=== PATIENT | male | born 1990 | race Caucasian/White ===

== ENCOUNTER 2017-02-01 17:28 | Emergency (ER) | payer SELFPAY | END 2017-02-01 18:50 | disposition home or self-care (01) | PROVIDERS: Emergency Provider Emergency Medicine; Visit Provider Emergency Medicine | DX: J11.1 Influenza due to unidentified influenza virus with other respiratory manifestations (principal) | CPT/HCPCS: 87275; 87276; 99282 ==

== ENCOUNTER 2017-03-03 16:27 | Emergency (ER) | payer BC, SELFPAY ==
[2017-03-03 18:31] VITALS: BP 142/90; PULSE 72; RESP 18; TEMP 37.1; O2SAT 100; BMI 25.4
--- NOTE | 2017-03-03 18:40 | PC.NURSE ---
Discussed symptoms with patient. Reporting the worst headache of her life. Hx of migraines but never like this . Reports a stabbing pain left side of head worsening over the last 5 days. never had a migraine this long and doesn't think they have ever effected her vision like this one. Discussed possible differentials and [facility] guidelines. Pt agreeable to transfer to ER for further evaluation. Report called to Jennifer. Rm 4 available. Pt asissted to ER by Heydi [facility] tech.
--- NOTE | 2017-03-03 19:19 | HMH.EDUTC ---
[facility] Disposition Clinical Impression: Right shoulder pain Qualifiers: Chronicity: acute Qualified Code(s): M25.511 - Pain in right shoulder Disposition: Home, Self-Care Condition on Discharge: Good Instructions: DI for Shoulder Pain Additional Instructions: After one month of symptoms, you need to follow up. Since you don't have a primary care, i will refer you to ortho. No steroid injection due to traumatic injury. Could make symptoms worse. Call ortho tomorrow for follow up appointment Referrals: Tone Church MD [Staff Physician] - (Call tomorrow. Report injury one month ago with persistant pain w/ ROM and weakness. Request appt for evaluation.) Time of Disposition: 20:14 Medical Decision Making Vital Signs: 03/03/17 18:31 Temperature 98.8 F Temperature Source Temporal Artery Scan Pulse Rate [Brachial] 72 Respiratory Rate 18 Blood Pressure [Right Arm] 142/90 Blood Pressure Mean [Right Arm] 107 Blood Pressure Source [Right Arm] Automatic Cuff Blood Pressure Position [Right Arm] Sitting 02 Sat by Pulse Oximetry 100 Oxygen Delivery Method Room Air - Physician Consults Physician Consulted: Dr. Francis, ER Reason -: Pt condition Comment/Response: Discussed HPI and exam. Refuses to do cortisone injection when trauma involved due to risk of worsening symptoms. No further evaluation recommended. Needs to follow up with ortho. Discussed with patient. Agreeable. - Calvin Inquiry Pt receiving controlled substance: No [facility] HPI - General Stated complaint: r shoulder pain Time Seen by Provider: 03/03/17 19:20 Mode of Arrival: Ambulatory Source of Information: Patient Limitations: No Limitations Description of Symptoms (Recalled from Triage Doc. by RN): HURT RT SHOULDER 1 MONTH AGO ARM WRESTLING HEENT Symptoms (Recalled from RN notes): No Resp Symptoms (Recalled from RN notes): No Skin Symptoms (Recalled from RN notes): No MS Symptoms (Recalled from RN notes): No Functional Status (Recalled from RN notes): NA - History of Present Illness Provider Complaint: c/o right shoulder pain x 1 month since arm wrestling a really big guero . Immediate severe pain and the next morning, unable to move shoulder at all. Improved throughout the first week but once month later, continued pain w/ limited ROM and weakness. No N/T. Here today wanting to get a steroid injection in shoulder and work excuse. no improvement with tylenol and motrin any longer. Hasn't taken or tried anything in weeks. No follow up since pain started. Doesn't have a PCP. Doesn't want a referral. really just want the injection because it has helped with other pains in the past. I know it is not my bone. I don't want xrays. this is deeper. Like ligament or tendon or something. - Related Data Home Medications Medication Instructions Recorded Confirmed No Known Home Medications [No 03/03/17 03/03/17 Known Home Medications] Allergies Allergy/AdvReac Type Severity Reaction Status Date / Time Penicillins Allergy Hives Verified 03/03/17 18:35 - Worker's Comp Is this a Worker's Comp case?: No [facility] History I have reviewed the patient's past medical history: Yes (denies PMHx) Other Surgeries: Yes: Other (left shoulder and left elbow) - *Social History Smoking Status: Current every day smoker Tobacco Type: cigarettes Alcohol Intake: current Alcohol Intake Frequency:: a few times a week - Psychiatric History Expresses thoughts of harming self/others: None Suicide Plan Description: No Plan ROS Obtained: Yes Systems reviewed as appropriate & no additional complaints - Cardiovascular Cardiovascular: Denies chest pain - Respiratory Respiratory: No dyspnea - Gastrointestinal Gastrointestingal: Denies: nausea, vomiting - Musculoskeletal Musculoskeletal: Reports as per HPI, Denies deformity, Reports joint stiffness, Denies joint swelling - Integumentary/Breasts Skin/Breast: Denies change in skin color, Denies lesions, Denies rash
== END 2017-03-03 20:49 | disposition home or self-care (01) ==
PROVIDERS: Emergency Provider Nurse Practitioner Family
DX: M25.511 Pain in right shoulder (principal); F17.210 Nicotine dependence, cigarettes, uncomplicated
CPT/HCPCS: 99202

== ENCOUNTER 2024-01-22 13:47 | Emergency (ER) | payer BC, OTHER, SELFPAY ==
[2024-01-22 13:57] VITALS: BP 162/113; PULSE 121; RESP 20; TEMP 36.7; O2SAT 99; BMI 28.8
--- NOTE | 2024-01-22 13:59 | ED_ITS ---
<Statement entered by Hunter Kulkarni MD - 01/22/24 15:10> SRAVANTHI Attestation I was consulted by the SRAVANTHI, and we discussed the complexity of problems being addressed. I approved the treatment and management plan for this patient's care in the emergency department, thus performing a substantial portion of the medical decision making. Hunter Kulkarni MD Discharge Plan Disposition Patient Disposition: Home, Self-Care Condition: Good Prescriptions Prescriptions: New doxycycline hyclate 100 mg capsule 100 mg PO BID 10 Days Qty: 20 0RF Referrals Follow up/Referrals: Provider,Referral, [Primary Care Provider] - See instructions Activity Restrictions/Add. Instructions Additional Instructions/Restrictions: Take medications as directed. Have partners all treated. Use protection for all sexual encounters. If any other problems or concerns please return to the ED Clinical Impressions Clinical Impression: Encounter for assessment of sexually transmitted infection exposure Print Language Print Language: Czech Discharge ED Provider: Hunter Kulkarni Adult HPI General Chief complaint: Recheck/Abnormal Lab/Rx Stated complaint: STD check Time Seen by Provider: 01/22/24 13:49 History of Present Illness HPI narrative: This is a 33-year-old male who presents to the ED today for an STD check. He states that Veronica previous girlfriend got back together and he believes he may have gonorrhea. He says he knows that he gets it. He has no symptoms. He has no burning with urination. No fevers, no chills, no abdominal pain. She d enies any other symptoms at this time. Related Data Previous Rx's ?Medication ?Instructions ?Recorded doxycycline hyclate 100 mg capsule 100 mg PO BID 10 days #20 caps 01/22/24 Allergies Allergy/AdvReac Type Severity Reaction Status Date / Time Penicillins Allergy Hives Verified 03/03/17 18:35 [facility] Disclaimer: The information contained in this section may have been updated after the patient was seen, as this information can be updated by other users. Social History Smoking Status: Current every day smoker tobacco type: cigarettes alcohol intake: current alcohol intake frequency: a few times a week current occupational status: other Travel in the last 8 weeks: None ROS Obtained: Yes Systems reviewed as appropriate & no additional complaints except as documented Constitutional Constitutional: Reports as per HPI Physical Exam General General appearance: alert and in no apparent distress Head Head exam: atraumatic and normocephalic Eye Eye exam: Present normal appearance and PERRL ENT ENT exam: Present normal oropharynx and mucous membranes moist Neck Neck exam: Present full ROM and trachea midline Respiratory Respiratory exam: Present normal lung sounds bilaterally Cardiovascular Cardiovascular exam: Present regular rate, normal rhythm, normal heart sounds, +S1 and +S2 Abdominal Exam Abdominal exam: Present soft and normal bowel sounds Extremities Exam Extremities exam: Present normal inspection, full ROM and normal capillary refill Neurological Exam Neurological exam: Present alert, oriented X3 and normal gait Skin Skin exam: Present warm, dry and intact Medical Decision Making Medical Records Screening: Per USPSTF and CDC recommendations, given the prevalence of disease in our region, it is our hospital?s policy to screen for HIV and viral Hepatitis for all patients aged 18 and over and those with ongoing risk factors. Calvin Inquiry Pt receiving controlled substance: No Calvin was queried for this patient: No Vital Signs: 01/22/24 13:57 01/22/24 14:49 01/22/24 14:49 Temperature 98.1 F 98.1 F 98.1 F Temperature Source Oral Oral Oral Pulse Rate 102 H Pulse Rate [Left Radial] 121 H 102 H Respiratory Rate 20 16 16 Blood Pressure 139/100 H Blood Pressure [Right Arm] 162/113 H 139/100 H Blood Pressure Mean [Right Arm] 129 113 Blood Pressure Source Automatic Cuff Blood Pressure Source [Right Arm] Automatic Cuff Blood Pressure Position Sitting Blood Pressure Position [Right Arm] Sitting 02 Sat by Pulse Oximetry 99 100 Oxygen Delivery Method Room Air Room Air Room Air Orders (Tests/Meds): ED MEDICATIONS Discontinued Medications Generic Name Dose Route Start Last Admin Trade Name Matthew PRN Reason Stop Dose Admin Ceftriaxone Sodium 500 mg 01/22/24 13:56 01/22/24 14:06 Ceftriaxone 500mg Vial IM 01/22/24 13:57 500 mg ONCE ONE Administration Lidocaine HCl 0 ml 01/22/24 13:56 01/22/24 14:07 Lidocaine 1% 5ml Pf Vial IM 01/22/24 13:57 5 ml ONCE ONE Administration ORDERS Category Date Time Status HIV (1&2) Antibody Rapid Stat Lab 01/22/24 13:57 Received HSV 1/2 PCR, (BLOOD/SWAB) Routine Lab 01/22/24 13:50 Ordered Hep C Ab with Reflex to RNA Stat Lab 01/22/24 13:57 Received Medical Decision Narrative: Patient presenting to the emergency department for evaluation of STDs. Patient is hemodynamically stable and nontoxic-appearing upon arrival, afebrile. Differential diagnosis includes STDs. Workup will be conducted with hematologic labs. Initial inventions include IM Rocephin. Discussed with patient that he will be taking Doxy for 10 days per protocol for STD prophylaxis. Patient wants to be treated. Critical Care Critical Care Time Critical Care Time: No
[2024-01-22] MEDS: cefTRIAXone 500MG VIAL 500 MG IM (14:06)
[2024-01-22] MEDS: LIDOCAINE 1% 5ML PF VIAL IM (14:07)
[2024-01-22 14:49] VITALS: BP 139/100; PULSE 102; RESP 16; TEMP 36.7; O2SAT 100
[2024-01-22 16:03] LABS: HIV (1&2) Antibody Rapid NONREACTIVE (NONREACTIVE)
[2024-01-24 08:08] LABS: HCV Ab Non Reactive (Non Reactive)
[2024-01-26 08:07] LABS: Neisseria gonorrhoeae, NAA Negative (Negative)
== END 2024-01-22 14:51 | disposition home or self-care (01) ==
PROVIDERS: Nurse Practitioner; Emergency Provider Student in an Organized Health Care Education/Training Program
DX: Z20.2 Contact with and (suspected) exposure to infections with a predominantly sexual mode of transmission (principal)
CPT/HCPCS: 86803; 87389; 87491; 87591; 96372; 99283; J0696